=== PATIENT | female | born 1940 | race Caucasian/White ===

== ENCOUNTER 2018-01-14 16:44 | Emergency (ER) | payer MEDICARE, OTHER ==
[~2018-01-14] VITALS: Ht 154.9 cm; Wt 102.4 kg
[2018-01-14] MEDS ORDERED: normal saline 1000ML IV soln IV ONE (17:05)
[2018-01-14] MEDS ORDERED: normal saline 1000ML IV soln IVB ONE (17:05)
[2018-01-14 17:46] LABS: CLARITY,URINE CLEAR (Clear); COLOR,URINE YELLOW (Yellow); GLUCOSE, URINE NEGATIVE (Neg); KETONES,URINE NEGATIVE (Neg); LEUKOCYTE ESTERASE ,URINE NEGATIVE (Neg); NITRITES, URINE NEGATIVE (Neg); OCCULT BLOOD,URINE NEGATIVE (Neg); PROTEIN,URINE TRACE mg/dl (Neg); UROBILINOGEN,URINE 0.2 E.U/dL (0.2-1.0)
[2018-01-14 17:58] LABS: UA COLLECTION TYPE CLN CATCH MIDSTREAM
[2018-01-14 18:13] LABS: SQUAMOUS EPITHELIAL CELL,UR FEW /LPF (FEW)
[2018-01-14 18:14] LABS: BACTERIA,URINE NONE SEEN /HPF (Neg); RBC,URINE NONE SEEN /HPF (0-2); WBC,URINE NONE SEEN /HPF (0-4)
[2018-01-14 18:40] LABS: BASOPHILS # (AUTO) 0.1 X10'3 (0-0.2); BASOPHILS % (AUTO) 0.6 % (0-1); EOSINOPHILS # (AUTO) 0.1 X10'3 (0-0.9); EOSINOPHILS % (AUTO) 1.1 % (0-6); HEMATOCRIT 42.6 % (35.0-45.0); HEMOGLOBIN 14.3 g/dl (12.0-16.0); LYMPHOCYTES # (AUTO) 1.5 X10'3 (1.1-4.8); LYMPHOCYTES % (AUTO) 13.7 % (21-51); MEAN CORPUSCULAR HEMOGLOBIN 27.8 PG (27.0-31.0); MEAN CORPUSCULAR HGB CONC 33.5 % (33.0-36.5); MEAN CORPUSCULAR VOLUME 83.1 FL (78-98); MEAN PLATELET VOLUME 8.6 FL (7.4-10.4); MONOCYTES # (AUTO) 0.8 X10'3 (0-0.9); MONOCYTES % (AUTO) 7.3 % (2-12); NEUTROPHILS # (AUTO) 8.4 X10'3 (1.8-7.7); NEUTROPHILS % (AUTO) 77.3 % (42-75); PLATELET COUNT 251 X10'3 (140-440); RED BLOOD COUNT 5.13 X10'6 (4.20-5.60); RED CELL DISTRIBUTION WIDTH 15.2 % (11.5-14.5); WHITE BLOOD COUNT 10.9 X10'3 (4.5-11.0)
[2018-01-14 18:56] LABS: ALANINE AMINOTRANSFERASE 28 U/L (12-78); ALBUMIN 3.5 G/DL (3.4-5.0); ALBUMIN/GLOBULIN RATIO 0.8 (1.1-1.5); ALKALINE PHOSPHATASE 166 IU/L (46-116); ANION GAP 8 (8-16); ASPARTATE AMINO TRANSFERASE 17 U/L (10-37); BILIRUBIN,TOTAL 0.4 MG/DL (0.1-1.0); BLOOD UREA NITROGEN 30 MG/DL (7-18); BUN/CREATININE RATIO 34.9 (6.6-38.0); CALCIUM 8.7 MG/DL (8.5-10.1); CHLORIDE 105 MMOL/L (99-107); CREATININE 0.86 MG/DL (0.40-0.90); GLUCOSE 104 MG/DL (70-104); POTASSIUM 3.1 MMOL/L (3.5-5.1); SODIUM 141 MMOL/L (135-145); TOTAL CARBON DIOXIDE 27.8 MMOL/L (24-32); TOTAL PROTEIN 7.7 G/DL (6.4-8.2); eGFR 64 ML/MIN
[2018-01-14 19:20] LABS: PROTHROMBIN TIME 10.3 SECONDS (9.0-12.0)
[2018-01-14 19:21] LABS: PARTIAL THROMBOPLASTIN TIME 26 SECONDS (22-32)
[2018-01-14] MEDS ORDERED: potassium Cl oral solution 20 MEQ/15 ML PO ONE (19:25)
[2018-01-14 19:36] VITALS: BP 132/79
== END 2018-01-14 19:37 | disposition home or self-care (01) ==
LOC: ER 16:45
DX: E86.0 Dehydration (principal); E87.6 Hypokalemia; M19.90 Unspecified osteoarthritis, unspecified site; Z88.1 Allergy status to other antibiotic agents; Z88.8 Allergy status to other drugs, medicaments and biological substances
CPT/HCPCS: 36415; 71045; 80053; 81001; 83605; 84145; 84484; 85025; 85610; 85730; 87040; 93005; 96360; 96361; 99285; J7030

== ENCOUNTER 2018-01-21 10:05 | Day surgery (SDC) | payer MEDICARE, OTHER ==
[2018-01-20 13:18] LABS: BASOPHILS % (AUTO) 0.4 % (0-1); EOSINOPHILS # (AUTO) 0.2 X10'3 (0-0.9); EOSINOPHILS % (AUTO) 1.7 % (0-6); HEMATOCRIT 42.1 % (35.0-45.0); LYMPHOCYTES # (AUTO) 1.8 X10'3 (1.1-4.8); LYMPHOCYTES % (AUTO) 18.6 % (21-51); MEAN CORPUSCULAR HEMOGLOBIN 27.8 PG (27.0-31.0); MEAN CORPUSCULAR HGB CONC 33.2 % (33.0-36.5); MEAN CORPUSCULAR VOLUME 83.8 FL (78-98); MEAN PLATELET VOLUME 8.5 FL (7.4-10.4); MONOCYTES # (AUTO) 0.6 X10'3 (0-0.9); MONOCYTES % (AUTO) 6.7 % (2-12); NEUTROPHILS % (AUTO) 72.6 % (42-75); PLATELET COUNT 221 X10'3 (140-440); RED BLOOD COUNT 5.03 X10'6 (4.20-5.60); RED CELL DISTRIBUTION WIDTH 15.4 % (11.5-14.5); WHITE BLOOD COUNT 9.7 X10'3 (4.5-11.0)
[2018-01-20 13:29] LABS: ALBUMIN 3.3 G/DL (3.4-5.0); ANION GAP 7 (8-16); BLOOD UREA NITROGEN 24 MG/DL (7-18); BUN/CREATININE RATIO 30.4 (6.6-38.0); CALCIUM 8.9 MG/DL (8.5-10.1); CHLORIDE 102 MMOL/L (99-107); CREATININE 0.79 MG/DL (0.40-0.90); GLUCOSE 93 MG/DL (70-104); POTASSIUM 3.4 MMOL/L (3.5-5.1); SODIUM 140 MMOL/L (135-145); TOTAL CARBON DIOXIDE 30.7 MMOL/L (24-32); eGFR 70 ML/MIN
[2018-01-20 13:44] LABS: PARTIAL THROMBOPLASTIN TIME 27 SECONDS (22-32); PROTHROMBIN TIME 10.4 SECONDS (9.0-12.0)
[2018-01-21] VITALS (8 sets, daily range): BP systolic 139–183; BP diastolic 63–81
[~2018-01-21] VITALS: Ht 157.5 cm; Wt 100.3 kg
[2018-01-21] MEDS ORDERED: HYDR25TA4 PO (10:55)
[2018-01-21] MEDS ORDERED: ALPR-384 PO (10:55)
[2018-01-21] MEDS ORDERED: OMEP20CA10 PO (10:55)
[2018-01-21] MEDS ORDERED: GUAN1TAB28 PO (10:55)
[2018-01-21] MEDS ORDERED: MULT-1074 PO (10:55)
[2018-01-21] MEDS ORDERED: TRAM50TA2 PO (10:55)
[2018-01-21] MEDS ORDERED: potassium Cl 20 mEq SR tablet PO PRN ×2 (11:15)
[2018-01-21] MEDS ORDERED: clindamycin 600mg/D5W 50ml IVPB IV ONE (11:20)
[2018-01-21] MEDS ORDERED: pneumococcal 23-VAL P-sac vacc 25 mcg/0.5ml vial IMVAC ONE (12:00)
[2018-01-21] MEDS ORDERED: lidocaine 1%/epinephrine 1:100,000 injection 50ml vial ONE (13:51)
[2018-01-21] MEDS ORDERED: ceFAZolin 1GM/D5W- ADD-VANTAGE 50 ML IV ONE (13:51)
[2018-01-21] MEDS ORDERED: midazolam 2 mg/2 ml injection ONE ×2 (13:51→15:04)
[2018-01-21] MEDS ORDERED: fentaNYL/PF 50MCG/1 ML 2ML syringe ONE ×2 (13:51→15:04)
[2018-01-21] MEDS ORDERED: ceFAZolin 1000mg inj ONE (13:51)
[2018-01-21] MEDS ORDERED: diphenhydrAMINE 50 mg/ml inj ONE (14:58)
[2018-01-21] MEDS ORDERED: metoprolol tartrate 1mg/ml inj IV ONE (15:11)
[2018-01-21] MEDS ORDERED: hydrALAZINE 20mg/ml inj. IV ONE (15:21)
[2018-01-21] MEDS ORDERED: diltiazem 5mg/ml 5ml inj. IV ONE (15:52)
[2018-01-21] MEDS ORDERED: HYDROcodone/acetaminophen 10/325mg tab PO PRN (16:55)
[2018-01-21] MEDS ORDERED: HYDROcodone/acetaminophen 5mg/325mg tablet PO PRN (16:55)
[2018-01-21] MEDS ORDERED: normal saline 1000ml 1,000 ML IV SCH (17:00)
[2018-01-21] MEDS ORDERED: ceFAZolin 1GM/D5W- ADD-VANTAGE 50 ML IV SCH (18:00)
== END 2018-01-21 20:10 | disposition home or self-care (01) ==
LOC: SSTAY O 10:05
PROVIDERS: ATTEND Internal Medicine Cardiovascular Disease
DX: I49.5 Sick sinus syndrome (principal); I10 Essential (primary) hypertension; F41.9 Anxiety disorder, unspecified; K21.9 Gastro-esophageal reflux disease without esophagitis; M79.7 Fibromyalgia; Z85.828 Personal history of other malignant neoplasm of skin; Z98.49 Cataract extraction status, unspecified eye; Z98.890 Other specified postprocedural states; Z82.3 Family history of stroke; Z80.0 Family history of malignant neoplasm of digestive organs; Z80.8 Family history of malignant neoplasm of other organs or systems
CPT/HCPCS: 33208; 36415; 71046; 80048; 85025; 85610; 85730; 93005; 99152; 99153; A4565; A6449; C1785; C1894; C1898; J0360; J0690; J1200; J2250; J3010; J3490; J7030; A4620

== ENCOUNTER 2018-04-24 07:35 | Emergency (ER) | payer MEDICARE, OTHER ==
[~2018-04-24] VITALS: Ht 154.9 cm; Wt 102.0 kg
[~2018-04-24 07:35] MED LIST: ALPR-384 PO; GUAN1TAB28 PO; HYDR25TA4 PO; MULT-1074 PO; OMEP20CA10 PO; TRAM50TA2 PO
[2018-04-24] MEDS ORDERED: ketorolac tromethamine 15mg/ml inj. IM ONE (08:10)
[2018-04-24] MEDS ORDERED: orphenadrine citrate 60mg/2ml inj. IM ONE (08:10)
[2018-04-24] MEDS ORDERED: CYCL-1 PO (08:11)
[2018-04-24 08:19] VITALS: BP 169/86
== END 2018-04-24 09:17 | disposition home or self-care (01) ==
LOC: ER 07:36
DX: M54.32 Sciatica, left side (principal); M19.90 Unspecified osteoarthritis, unspecified site; G89.29 Other chronic pain; Z88.1 Allergy status to other antibiotic agents; Z88.8 Allergy status to other drugs, medicaments and biological substances; Z79.899 Other long term (current) drug therapy
CPT/HCPCS: 96372; 99284; J1885; J2360

== ENCOUNTER 2018-05-03 09:07 | Emergency (ER) | payer MEDICARE, OTHER ==
[~2018-05-03] VITALS: Ht 153.7 cm; Wt 98.6 kg
[~2018-05-03 09:07] MED LIST changes: +CYCL-1 PO
[2018-05-03] MEDS ORDERED: METH4TAB81 PO (09:48)
[2018-05-03 10:14] VITALS: BP 182/84
[2018-05-03] MEDS ORDERED: dexamethasone sod phosphate 10mg/ml inj IM STA (10:38)
[2018-05-03] MEDS ORDERED: LIDOcaine 5% patch TP STA (10:38)
== END 2018-05-03 11:25 | disposition home or self-care (01) ==
LOC: ER 09:08
DX: M54.5 Low back pain (principal); M19.90 Unspecified osteoarthritis, unspecified site; Z88.1 Allergy status to other antibiotic agents; Z88.8 Allergy status to other drugs, medicaments and biological substances; Z79.899 Other long term (current) drug therapy; M48.061 Spinal stenosis, lumbar region without neurogenic claudication
CPT/HCPCS: 72131; 96372; 99284; J1100

== ENCOUNTER 2019-11-09 02:02 | Emergency (ER) | payer MEDICARE, OTHER ==
[~2019-11-09] VITALS: Ht 160 cm; Wt 95.0 kg
[~2019-11-09 02:02] MED LIST changes: +METH4TAB81 PO; -OMEP20CA10 PO; +OMEP20CA15 PO
[2019-11-09 04:16] VITALS: BP 166/89
== END 2019-11-09 04:24 | disposition home or self-care (01) ==
LOC: ER 02:02
DX: K59.00 Constipation, unspecified (principal); K62.89 Other specified diseases of anus and rectum; I48.91 Unspecified atrial fibrillation; M19.90 Unspecified osteoarthritis, unspecified site; Z95.0 Presence of cardiac pacemaker; Z88.1 Allergy status to other antibiotic agents; Z88.8 Allergy status to other drugs, medicaments and biological substances; Z79.899 Other long term (current) drug therapy
CPT/HCPCS: 99284

== ENCOUNTER 2023-01-17 21:10 | Emergency (ER) | payer MEDICARE, OTHER ==
[~2023-01-17] VITALS: Ht 157.5 cm; Wt 81.8 kg
[2023-01-17 21:23] VITALS: BP 149/72; PULSE 76; TEMP 99.5; O2SAT 96
[2023-01-17] MEDS ORDERED: HYDROcodone/acetaminophen 10/325mg tab PO ONE (23:25)
[2023-01-17 23:49] LABS: BILIRUBIN,URINE MODERATE (Neg); CLARITY,URINE TURBID (Clear); COLOR,URINE BROWN (Yellow); GLUCOSE, URINE NEGATIVE (Neg); KETONES,URINE TRACE mg/dl (Neg); LEUKOCYTE ESTERASE ,URINE TRACE (Neg); NITRITES, URINE POSITIVE (Neg); OCCULT BLOOD,URINE LARGE (Neg); PROTEIN,URINE >=300 mg/dl (Neg)
[2023-01-17 23:51] LABS: BASOPHILS # (AUTO) 0.1 X10'3 (0-0.2); BASOPHILS % (AUTO) 0.6 % (0-1); EOSINOPHILS # (AUTO) 0.4 X10'3 (0-0.9); EOSINOPHILS % (AUTO) 3.8 % (0-6); HEMATOCRIT 40.3 % (35.0-45.0); HEMOGLOBIN 13.4 g/dl (12.0-16.0); LYMPHOCYTES # (AUTO) 2.4 X10'3 (1.1-4.8); LYMPHOCYTES % (AUTO) 22.4 % (21-51); MEAN CORPUSCULAR HEMOGLOBIN 28.2 PG (27.0-31.0); MEAN CORPUSCULAR HGB CONC 33.2 g/dL (33.0-36.5); MEAN PLATELET VOLUME 9.2 FL (7.4-10.4); MONOCYTES # (AUTO) 0.8 X10'3 (0-0.9); MONOCYTES % (AUTO) 7.9 % (2-12); NEUTROPHILS # (AUTO) 6.9 X10'3 (1.8-7.7); NEUTROPHILS % (AUTO) 65.3 % (42-75); PLATELET COUNT 276 X10'3 (140-440); RED BLOOD COUNT 4.74 X10'6 (4.20-5.60); RED CELL DISTRIBUTION WIDTH 14.9 % (11.5-14.5); WHITE BLOOD COUNT 10.5 X10'3 (4.5-11.0)
[2023-01-17 23:52] LABS: INR 2.5 INR; PROTHROMBIN TIME 25.1 SECONDS (9.0-12.0)
[2023-01-17 23:54] LABS: UA COLLECTION TYPE CLN CATCH MIDSTREAM
[2023-01-17 23:56] LABS: RBC,URINE TNTC /HPF (0-2); TRANSITIONAL EPI CELLS,URINE FEW /HPF
[2023-01-17 23:57] LABS: ALANINE AMINOTRANSFERASE 15 U/L (12-78); ALBUMIN 3.5 G/DL (3.4-5.0); ALBUMIN/GLOBULIN RATIO 0.9 (1.1-1.5); ALKALINE PHOSPHATASE 177 IU/L (46-116); ANION GAP 13 (8-16); ASPARTATE AMINO TRANSFERASE 16 U/L (10-37); BILIRUBIN,TOTAL 0.4 MG/DL (0.1-1.0); BLOOD UREA NITROGEN 31 MG/DL (7-18); BUN/CREATININE RATIO 25.2 (10.0-20.0); CHLORIDE 103 MMOL/L (99-107); CREATININE 1.23 MG/DL (0.40-0.90); GLUCOSE 116 MG/DL (70-104); POTASSIUM 3.7 MMOL/L (3.5-5.1); SODIUM 139 MMOL/L (135-145); TOTAL CARBON DIOXIDE 22.9 MMOL/L (24-32); TOTAL PROTEIN 7.4 G/DL (6.4-8.2); eCRCL 27 ML/MIN; eGFR 42 ML/MIN
[2023-01-17 23:58] LABS: SQUAMOUS EPITHELIAL CELL,UR NONE SEEN /LPF (FEW)
[2023-01-17 23:59] LABS: MUCUS STRANDS MODERATE /LPF (Neg)
[2023-01-18 00:02] LABS: BACTERIA,URINE 1+ /HPF (Neg)
[2023-01-18 00:50] VITALS: RESP 16
[2023-01-18] MEDS ORDERED: CefTRIAXone/D5W-Rocephin 1gm 50 ML IV ONE (00:55)
[2023-01-18] MEDS ORDERED: cephalexin 250mg capsule PO ONE (01:20)
[2023-01-18] MEDS ORDERED: CEPH-585 PO (02:14)
== END 2023-01-18 02:33 | disposition home or self-care (01) ==
LOC: ER 21:10
DX: N20.0 Calculus of kidney (principal); N39.0 Urinary tract infection, site not specified; M19.90 Unspecified osteoarthritis, unspecified site; Z88.1 Allergy status to other antibiotic agents; Z88.8 Allergy status to other drugs, medicaments and biological substances; Z79.2 Long term (current) use of antibiotics; Z79.899 Other long term (current) drug therapy
CPT/HCPCS: 36415; 74176; 80053; 81001; 83605; 85025; 85610; 87040; 87077; 87088; 87186; 99284

== ENCOUNTER 2024-01-20 13:54 | Emergency (ER) | payer MEDICARE, OTHER ==
[~2024-01-20] VITALS: Ht 160 cm; Wt 87.8 kg
[2024-01-20 14:34] VITALS: BP 141/72; PULSE 100; RESP 18; TEMP 98; O2SAT 99
== END 2024-01-20 18:51 | disposition home or self-care (01) ==
LOC: ER 13:55
DX: I89.0 Lymphedema, not elsewhere classified (principal); I48.91 Unspecified atrial fibrillation; Z79.01 Long term (current) use of anticoagulants; Z88.1 Allergy status to other antibiotic agents; Z88.0 Allergy status to penicillin; Z95.0 Presence of cardiac pacemaker; Z79.899 Other long term (current) drug therapy
CPT/HCPCS: 99282; A6449